=== PATIENT | male | born 1955 | race Caucasian/White ===

== ENCOUNTER → 2017-08-11 | Outpatient (CLI) | payer MEDICARE, OTHER ==
[~2017-08-11] MED LIST: ADVI200T PO; ASPI1TAB PO; BISO5TAB5 PO; COUM2.5T17 PO; LISI10TA4 PO; LISI20TA PO; MULT1TAB10 PO; NEXI40CA PO; OCUVCAP2 PO; PERC5TAB12 PO; SIMV10TA2 PO; TRAM50TA2 PO; WARF-23
[2017-08-11 11:55] LABS: INR 0.99; MEAN CORPUSCULAR HEMOGLOBIN 33.3 pg (27.0-33.0); MEAN CORPUSCULAR HGB CONC 34.4 g/dl (32.0-36.5); MEAN CORPUSCULAR VOLUME 96.8 fl (80.0-96.0); RED CELL DISTRIBUTION WIDTH 13.4 % (11.5-14.5); WHITE BLOOD COUNT 4.8 K/mm3 (4.0-10.0)
--- NOTE | 2017-08-11 12:59 | REP ---
Chest x-ray: Two views. History: Gastroesophageal reflux disease. Blood pressure. I cholesterol. . Comparison study: No comparison study . Findings: The lungs are well inflated and free of infiltrate. The pleural angles are sharp. The heart size is normal. Pulmonary vasculature is not increased. No significant bony abnormality is seen. There are degenerative changes in the thoracic spine. Impression: Negative chest x-ray. Signed by Anish Kemp MD 08/11/2017 12:50 P
[2017-08-11 13:09] LABS: ALBUMIN 3.9 GM/DL (3.2-5.2); ALBUMIN/GLOBULIN RATIO 1.26 (1.00-1.93); ALKALINE PHOSPHATASE 50 U/L (45-117); ALT/SGPT 51 U/L (12-78); ANION GAP 7 MEQ/L (8-16); AST/SGOT 59 U/L (15-37); BILIRUBIN,TOTAL 0.7 MG/DL (0.2-1.0); BLOOD UREA NITROGEN 26 MG/DL (7-18); CALCIUM LEVEL 9.4 MG/DL (8.8-10.2); CARBON DIOXIDE LEVEL 29 MEQ/L (21-32); CHLORIDE LEVEL 105 MEQ/L (98-107); CREATININE FOR GFR 0.98 MG/DL (0.70-1.30); GLOMERULAR FILTRATION RATE > 60.0 (>49); GLUCOSE, FASTING 101 MG/DL (80-110); POTASSIUM SERUM 4.3 MEQ/L (3.5-5.1); SODIUM LEVEL 141 MEQ/L (136-145)
--- NOTE | 2017-08-11 22:25 | ECGEPIP ---
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
== END ==
LOC: M ADMPAT 10:32
PROVIDERS: ATTEND Orthopaedic Surgery
DX: Z01.818 Encounter for other preprocedural examination (principal); M17.11 Unilateral primary osteoarthritis, right knee; Z79.899 Other long term (current) drug therapy

== ENCOUNTER 2017-08-24 13:00 | Inpatient (IN) | payer MEDICARE, OTHER ==
[2017-08-11 11:21] VITALS: BP 110/64
[~2017-08-24] VITALS: Ht 172.7 cm; Wt 97.5 kg
[~2017-08-24 13:00] MED LIST changes: -BISO5TAB5 PO; -COUM2.5T17 PO; -LISI10TA4 PO; -PERC5TAB12 PO; -TRAM50TA2 PO; -WARF-23
--- NOTE | 2017-08-25 04:48 | HPE ---
DATE OF SCHEDULED ADMISSION: 09/04/2017 HISTORY OF PRESENT ILLNESS: This is a pleasant male with continuing symptomatic right knee osteoarthritis. He has consented for a right total knee arthroplasty per Dr. Martin Chan. Medical optimization per Dr. Hutchison, which the patient states he was cleared, but we are still awaiting his note. X-rays are consistent with advanced osteoarthritis. ALLERGIES: None known to medications. MEDICINES: Include: - bisoprolol fumarate 5 mg every day - omeprazole 40 mg one by mouth every day - simvastatin - lisinopril - baby aspirin 81 mg one by mouth every day - He will take Coumadin the night before surgery 5 mg. - lisinopril/hydrochlorothiazide 10/12.5 mg one by mouth every day (Will have to ask the patient, as there appears to be a dosage that is 20/12.5 mg, to clarify that with the patient.) - simvastatin 20 mg one by mouth at bedtime MEDICAL PROBLEM LIST: Includes: 1. Symptomatic right knee osteoarthritis. 2. Hypertension. 3. Acid reflux. 4. Hypercholesteremia. PERTINENT SURGICAL HISTORY: 1. Bilateral hip replacements per Dr. Justice. 2. Right knee scope and double hernia in the past. SOCIAL HISTORY: Does not smoke or drink alcohol excessively. 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 He is and here with his . FAMILY HISTORY: Positive hypertension, diabetes, arthritis. REVIEW OF SYSTEMS: He denies chest pain, shortness of breath, dyspnea on exertion, fever, chills, malaise, upper respiratory or urinary tract symptoms. PHYSICAL EXAMINATION: Vitals: Weight 221. Height 5 feet 9 inches. Temperature 97.3, blood pressure (BP) 130/70, pulse 56, and respirations 16. He is a pleasant overweight white male in no acute distress. He is alert and oriented times three. Mood and affect are appropriate. Ambulating with favoring of his left lower extremity. Antalgia about his right knee. Right knee inspected. Benign, noninfectious looking. Not effused, ecchymotic, or erythematous, but positive medial joint line tenderness with crepitance about the knee through flexion/extension. Patellofemoral joint (PFJ) is congruent, static, and dynamic. He is stable about the collateral ligaments, patella, and quadriceps tendons. No popliteal fossa mass or pain. Right hip range of motion is not limited or irritable. Bowel: Soft, nontender times four. Chest: Rises symmetrically. Lungs: Clear to auscultation. Neck: Supple. Negative jugular venous distention (JVD) or bruits. Normocephalic. EKG shows sinus bradycardia read by Dr. Drew Gonzalez. Essentially normal EKG. Chest x-ray, 08/11/2017, read by Dr. Kemp. Negative chest x-ray. LABS: Were reviewed. No growth about nasal sinus and urine cultures. Ketones urine auto 1+. Red blood cell count 4.18, hemoglobin 13.9, hematocrit 40.5, mean corpuscular volume 96.8, mean corpuscular hemoglobin 33.3. BUN 26, anion gap 7, AST-SGOT 59. Otherwise, labs unremarkable. IMPRESSION: 1. Right knee symptomatic degenerative joint disease (DJD). 2. Patient consented for a right total knee arthroplasty per Dr. Martin Chan. 3. Medical optimization per Dr. Hutchison, but I am yet to see his note. 4. plastic press molder to operating room (OR) 2 grams IV Kefzol in OR. 5. Sequential compression device (SCD) and thromboembolism deterrents (TEDs) in OR. MTDD
[2017-09-04] MEDS ORDERED: LR 1,000 ML IV ONE (10:00)
[2017-09-04] MEDS ORDERED: ACETAMINOPHEN 500 MG TAB PO ONE (10:00)
[2017-09-04] MEDS ORDERED: WARF-23 (10:29)
[2017-09-04] MEDS ORDERED: BISO5TAB5 PO (10:29)
[2017-09-04] MEDS ORDERED: LISI10TA4 PO (10:32)
[2017-09-04] MEDS ORDERED: ceFAZolin 1GM INJ (J0690) As Ordered ONE (11:44)
[2017-09-04] MEDS ORDERED: MIDAZOLAM INJ 2 MG/2 ML VIAL (J2250) As Ordered ONE ×2 (11:44→13:39)
[2017-09-04] MEDS ORDERED: TRANEXAMIC ACID 100 MG/ML 10ML VIAL As Ordered ONE (11:44)
[2017-09-04] MEDS ORDERED: fentaNYL 100 MCG/2 ML INJECTION (J3010) As Ordered ONE ×2 (11:44→13:39)
[2017-09-04] MEDS ORDERED: EPINEPHrine INJ 1 MG/ML 1ML AMP As Ordered ONE (11:45)
[2017-09-04] MEDS ORDERED: BUPIVACAINE LIPOSOME/PF 1.3% 20 ML VIAL (13.3MG/ML)(EXPAREL) As Ordered ONE (11:45)
[2017-09-04] MEDS ORDERED: fentaNYL 100 MCG/2 ML INJECTION (J3010) IV ONE (12:45)
[2017-09-04] MEDS ORDERED: MIDAZOLAM INJ 2 MG/2 ML VIAL (J2250) IV ONE (12:45)
[2017-09-04] MEDS ORDERED: PROPOFOL 200 MG/20 ML VIAL As Ordered ONE ×2 (13:39→14:24)
[2017-09-04] MEDS ORDERED: ePHEDrine SULFATE 25 MG/5 ML(5MG/ML) SYRINGE As Ordered ONE (13:40)
[2017-09-04] MEDS ORDERED: ROPIvacaine 0.5% 30 ML INJECTION (J2795) ONE (13:40)
[2017-09-04] MEDS ORDERED: LIDOCAINE 2% INJ 100 MG/5 ML SDV (FOR ANES.) As Ordered ONE (13:40)
[2017-09-04] MEDS ORDERED: EPINEPHrine INJ 1 MG/ML 1ML AMP ONE (13:40)
[2017-09-04] MEDS ORDERED: dexameTHASONE 10 MG/1 ML VIAL PRES.FREE (J1100) ONE (13:40)
[2017-09-04] MEDS ORDERED: MORPHINE 1MG/ML IN 0.9% NACL 100ML IV BAG As Ordered ONE (15:08)
[2017-09-04] MEDS ORDERED: NALOXONE INJ 0.4 MG/1 ML VIAL (J2310) IV PRN (15:45)
[2017-09-04] MEDS ORDERED: MORPHINE 1MG/ML IN 0.9% NACL 100ML IV BAG IV PRN (15:45)
[2017-09-04] MEDS ORDERED: NALBUPHINE HCL 10 MG/ML AMP (J2300) IV PRN (15:45)
[2017-09-04] MEDS ORDERED: diphenhydrAMINE INJ 50MG/ML VIAL (J1200) IV PRN (15:45)
[2017-09-04] MEDS ORDERED: EPIDURAL/PCA KEYS XX PRN (15:45)
[2017-09-04] MEDS ORDERED: ONDANSETRON 4MG/2ML VIAL (J2405) IV PRN (15:45)
[2017-09-04] MEDS ORDERED: PERCOCET 5MG/325MG TAB PO PRN (15:45)
[2017-09-04] MEDS ORDERED: ACETAMINOPHEN TAB 650MG DOSE (2X325MG) PO PRN (15:45)
[2017-09-04] MEDS ORDERED: FLEET ENEMA PR PRN (15:45)
[2017-09-04] MEDS ORDERED: fentaNYL 100 MCG/2 ML INJECTION (J3010) IV PRN (15:45)
--- NOTE | 2017-09-04 16:03 | CR.PDOC ---
[facility] Consultation Consultation DATE OF CONSULTATION: 09/04/2017 PRIMARY CARE PHYSICIAN: Dr. Hutchison REFERRING PROVIDER: Dr. Ariella Rosas REASON FOR CONSULTATION/CHIEF COMPLAINT: Presented to [facility] for an elective right knee replacement. HISTORY OF PRESENT ILLNESS: Patient is a 62 year old male with a PMHx of HTN, DLP, GERD and Osteoarthritis who presented to [facility] for an elective right knee replacement. He received medical clearance with Dr. Hutchison 2 weeks prior; who performed blood work, EKG and CXR. Patient noted that he has been having right knee pain because of osteoarthritis. He has received corticosteroid injections in his knee that failed to improve the pain. He has tried oral medications as well, but failed to improve. He noted that he has been having difficulty with ambulation. Currently he is post-surgery and he denies any nausea, vomiting, abdominal pain , constipation, diarrhea or dysuria. He also denies chest pain, shortness of breath or palpitations. He notes a non-productive cough that has been present prior to surgery. No fevers have been reported. ALLERGIES: Please see below. HOME MEDICATIONS: Please see below. 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 ASSESSMENT/PLAN: Right knee pain - likely 2/2 osteoarthritis - s/p total right knee arthroplasty (POD#0) - Presented after he failed medical management and had difficulty with walking - Surgery to manage pain control and anticoagulation for DVT prophyalxis HTN - blood pressure well controlled currently - c/w Bisoprolol - Will hold Lisinopril and HCTZ pending lab work DLP - c/w simvastatin GERD - c/w PPI DVT prophylaxis - As per surgical team Vital Signs/I&O Vital Signs Date Time Temp Pulse Resp B/P (MAP) Pulse Ox O2 Delivery O2 Flow Rate FiO2 09/04/17 15:59 97.2 95 18 145/81 (102) 95 Room Air 09/04/17 15:25 2 I&O- Last 24 Hours up to 6 AM 09/05/17 05:59 Intake Total 1900 ml Output Total 1050 ml Balance 850 ml Allergies Coded Allergies: No Known Allergies (Unverified , 08/11/17) Home Medications Scheduled (Lisinopril/Hydrochlorothi 20-12.5 mg) 1 Tab Tab, 1 TAB PO DAILY, (Reported) Aspirin (Aspirin 81) 81 Mg Tab, 81 MG PO DAILY, #30 (Reported) Bisoprolol Fumarate (Bisoprolol Fumarate) 5 Mg Tab, 5 MG PO DAILY, (Reported) Esomeprazole Magnesium Trihydr (Nexium) 40 Mg Cap, 40 MG PO DAILY, (Reported) Lisinopril (Lisinopril) 10 Mg Tab, 10 MG PO DAILY, (Reported) Multivitamins (Multivitamin Adults) 1 Tab Tab, 1 TAB PO DAILY, (Reported) Multivitamins (Ocuvite Adult 50+) 1 Cap Cap, 1 CAP PO DAILY, (Reported) Simvastatin (Simvastatin) 10 Mg Tab, 10 MG PO DAILY, (Reported) Scheduled PRN Ibuprofen (Advil) 200 Mg Tab, 400 MG PO Q4HP PRN for PAIN, (Reported) Miscellaneous Medications Warfarin Sod (Warfarin Sodium) 5 Mg Tab, (Reported) KELY LINDQUIST MD Sep 04, 2017 16:03
[2017-09-04] MEDS ORDERED: WARFARIN SOD 5 MG TAB PO ONE (17:00)
[2017-09-04] MEDS: LR 1,000 ML IV SCH (18:01)
[2017-09-04] MEDS: BISOPROLOL FUMARATE 5 MG TAB PO SCH (18:08)
--- NOTE | 2017-09-04 20:51 | RO ---
DATE OF PROCEDURE: 09/04/2017 PREPROCEDURE DIAGNOSIS: Right knee degenerative arthritis. POSTPROCEDURE DIAGNOSIS: Right knee degenerative arthritis. OPERATIVE PROCEDURE: Right total knee arthroplasty using a size 4 cruciate retaining femoral component, size 4 tibial tray, with a 10 mm rotating platform polyethylene insert and a 35 mm polyethylene button. All components were cemented. The prosthesis was made by [employer]. It was a PFC knee. SURGEON: Fatou Chan MD LIVESTOCK DEALER: Ms. Malathi Caraballo ANESTHESIA: Spinal with right femoral nerve block. COMPLICATIONS: None. SPECIMENS: Joint surface. ESTIMATED BLOOD LOSS: Less than 20 mL. TOURNIQUET TIME: 85 minutes. DESCRIPTION OF PROCEDURE: Antibiotics were given intravenously preoperatively and a successful right femoral nerve block and then spinal anesthetic was induced. Then a spinal anesthetic was established. Then, a tourniquet was placed on the right upper thigh and not inflated. Right lower extremity was carefully prepped and draped in the usual sterile fashion, then the leg was elevated, then after the appropriate time out, the tourniquet was inflated. A longitudinal incision was made for a medial parapatellar approach to the knee. Bovie cautery was used to coagulate crossing vessels. Subperiosteal dissection over the proximal, medial and lateral tibial plateaus were performed and posterior and medial release performed. Then we everted the patella and flexed the knee. Drill was placed down the center of the femoral canal. It is noteworthy that he actually had a significant amount of obligate internal rotation of the femur and he did not have very good external rotation or internal rotation of the femur. It is noteworthy that he did have a total hip replacement above. Nonetheless, I used a distal femoral cutting jig was supplied and set at 5 degrees valgus cut at 10 mm resection level for a right knee. Block was pinned into position. Distal femoral cut performed. An AP sizing jig measured for a size #4. The 3 degrees external rotation block was placed and the drill holes placed, then the four-in-one block applied. It appeared as if we were appropriate in terms of white side line and the epicondylar axis. Thus this position with the 3 degrees external rotation was accepted. We were clearly taking more medial off than lateral which seemed appropriate. Then we performed anterior, posterior and chamfer cuts, taking great care to protect the surrounding soft tissues. We then exposed the proximal tibia, used extramedullary sarah to estimate being parallel the entry level mechanical engineer axis of the tibia. Referenced off the medial tibial condyle, took 4 mm from that position. Block was pinned into position. Secondary check with extramedullary sarah confirmed that we appeared to be parallel to the mechanical axis. Proximal tibial osteotomy was then performed. Laminar paraeducator was then placed medially and we performed a completion lateral meniscectomy and debridement of posterior and lateral osteophytes. Then we placed the laminar paraeducator laterally and performed a completion medial meniscectomy with debridement of the posterior and medial osteophytes. Spacer blocks were then trialed. He was quite tight both in flexion and extension. However, I could get the flexion block in in extension and he had good alignment. I used the two rods to check our overall alignment from the center of the femoral head to the ankle. However, I was able to flex the knee. It is noteworthy that he had significant amount of internal rotation of the distal femur consistent with what we had seen earlier. Thus, I did look closely at this and that possibly this could cause trouble with patellofemoral maltracking. After thinking this through and reapplying the four-in-one block and the slight amount of external rotation, repinning it and redoing our cuts did not change a whole lot and thus at this point I put the femur in place, brought the knee out into extension and then we prepared the patella with the knee in extension. The patella osteotomy was then performed and the 35 button was chosen. The lug hole was drilled and the trial component was placed. As I flexed and extended the knee, however, the patellofemoral tracking was fine. So after contemplating whether or not I needed to do anything with femur, internal rotation deformity, I think it likely would be still a stable knee. Thus, rather than doing anything radical with the cuts, I went ahead and completed the preparation. I did take an additional 2 mm, because there is both some tightness in flexion and in extension. By reapplying the tibial cutting block and performing the proximal tibial osteotomy. I then placed the trial tibial tray, applied the reamer and broach and then the trial femoral component and again the patellofemoral tracking was anatomic. He had actually excellent stability to varus-valgus stress testing both in extension actually and in flexion, although he did have internal rotation as I flexed the knee. So, I felt this was the most successful I could do. The lug holes were drilled. All the trial components were removed and I placed the Exparel in the knee and the posterior capsule, the medial and lateral periosteum of the femur as well as the medial and lateral periosteum of the tibia and the arthrotomy edges of the deep capsule. I then prepared the bony surfaces for cementing with copious amount of pulsatile lavage irrigant solution as my reading assistant Malathi Ilya prepared the cement. She was also critical to the success of this operation in helping me by manipulating the knee, applying appropriate soft tissue retraction so I could perform the operation smoothly and efficiently amongst many other tasks. Once all the bony surfaces were well dried and cleansed I cemented the tibial tray, removed excess cement and placed the polyethylene, then cemented the femoral component, removed excess cement, brought the knee into extension, cemented the patellar button, removed excess cement and held that position in extension until the cement hardened and while we were waiting applied a copious amount of pulsatile lavage irrigant solution throughout the knee. Then the tranexamic acid was applied. Began closing the arthrotomy with two apex #1 PDS sutures and one medial peripatellar area, then a running #1 Stratafix double arm was used to close the capsule as we let the tourniquet down. We irrigated between layers, closed the deep subdermal tissues with interrupted #2-0 PDS sutures. Skin was closed with chun, covered by Adaptic dry sterile bulky dressing. He was then transferred to the recovery room in stable condition. There were no intraoperative complications.
[2017-09-04 22:00] VITALS: BP 134/85
[2017-09-05 02:00] VITALS: BP 138/80
[2017-09-05] MEDS: LR 1,000 ML IV SCH (04:15)
[2017-09-05 06:00] VITALS: BP 159/79
[2017-09-05 06:38] LABS: BASO % 0.3 % (0.0-1.0); EOS % 0.2 % (0.0-3.0); IMMATURE GRANULOCYTE % 0.4 % (0-0); LYMPH # 1.1 10^3/uL (1.5-4.5); LYMPH % 8.7 % (24.0-44.0); MEAN CORPUSCULAR HEMOGLOBIN 32.2 pg (27.0-33.0); MEAN CORPUSCULAR HGB CONC 33.6 g/dl (32.0-36.5); MEAN CORPUSCULAR VOLUME 95.9 fl (80.0-96.0); MONO # 1.4 10^3/uL (0.0-0.8); MONO % 10.9 % (0.0-5.0); NEUTROPHILS # 9.9 10^3/uL (1.8-7.7); NEUTROPHILS % 79.5 % (36.0-66.0); PLATELET COUNT, AUTOMATED 175 10^3/uL (150-450); RED CELL DISTRIBUTION WIDTH 14.4 % (11.5-14.5); WHITE BLOOD COUNT 12.5 10^3/uL (4.0-10.0)
[2017-09-05] MEDS ORDERED: PERCOCET 5MG/325MG TAB PO PRN ×2 (06:45)
[2017-09-05 06:50] LABS: INR 1.02
[2017-09-05 06:52] LABS: ALBUMIN/GLOBULIN RATIO 0.97 (1.00-1.93); ALKALINE PHOSPHATASE 41 U/L (45-117); ALT/SGPT 23 U/L (12-78); ANION GAP 6 MEQ/L (8-16); AST/SGOT 13 U/L (15-37); BILIRUBIN,TOTAL 0.3 MG/DL (0.2-1.0); BLOOD UREA NITROGEN 13 MG/DL (7-18); CALCIUM LEVEL 8.6 MG/DL (8.8-10.2); CARBON DIOXIDE LEVEL 30 MEQ/L (21-32); CHLORIDE LEVEL 105 MEQ/L (98-107); CREATININE FOR GFR 0.83 MG/DL (0.70-1.30); GLOMERULAR FILTRATION RATE > 60.0 (>49); GLUCOSE, FASTING 128 MG/DL (80-110); MAGNESIUM LEVEL 2.1 MG/DL (1.8-2.4); POTASSIUM SERUM 4.1 MEQ/L (3.5-5.1); SODIUM LEVEL 141 MEQ/L (136-145); TOTAL PROTEIN 6.1 GM/DL (6.4-8.2)
[2017-09-05] MEDS ORDERED: traMADol 50 MG TAB PO PRN (07:30)
[2017-09-05] MEDS: MIRALAX *UNIT DOSE* 17GM PACKET PO SCH (08:12)
[2017-09-05] MEDS: MOM 30ML SUSPENSION UDC PO SCH (08:12)
[2017-09-05] MEDS: MULTIVITAMINS/MINERALS THERAP 1 TAB PO SCH (08:13)
[2017-09-05] MEDS: OCUVITE 1 TAB PO SCH (08:13)
[2017-09-05] MEDS: PANTOPRAZOLE 40MG TAB (PROTONIX) PO SCH (08:13)
[2017-09-05] MEDS: SENOKOT S TAB PO SCH ×2 (08:13→21:00)
[2017-09-05] MEDS: ACETAMINOPHEN TAB 650MG DOSE (2X325MG) PO SCH ×4 (08:13→21:00)
[2017-09-05] MEDS ORDERED: MORPHINE 15 MG SA TAB PO ONE (08:15)
[2017-09-05] MEDS ORDERED: MORPHINE 15 MG SA TAB PO SCH (09:00)
[2017-09-05 10:00] VITALS: BP 141/79
--- NOTE | 2017-09-05 11:46 | REP ---
Right knee series: Two views. History: Check placement. Findings: The patient is status post right knee arthroplasty. The patellar, femoral, and tibial components are well aligned with respect to each other and their [place] bones. Anterior skin chun and periarticular soft tissue emphysema are seen expected postoperatively. Signed by Anish Kemp MD 09/05/2017 02:17 P
[2017-09-05 14:00] VITALS: BP 161/84
--- NOTE | 2017-09-05 15:02 | IPNPDOC ---
Date Seen The patient was seen on 09/05/17. Progress Note Hospitalist Progress Note Subjective: Patient states that he is nauseated and having trouble keeping food down Objective: Physical Exam: Vitals: Vital Sign - Last 24 Hours 09/04/17 09/04/17 09/04/17 09/04/17 15:25 15:41 15:53 15:59 Temp 97.0 97.2 Pulse 62 54 57 95 Resp 18 18 18 18 B/P (MAP) 144/88 (106) 140/80 (100) 144/80 (101) 145/81 (102) Pulse Ox 99 95 95 95 O2 Delivery Nasal Cannula Room Air Room Air Room Air O2 Flow Rate 2 09/04/17 09/04/17 09/04/17 09/04/17 16:15 18:08 20:00 21:00 Pulse 95 B/P (MAP) 145/81 Pulse Ox 94 O2 Delivery Room Air Room Air Room Air 09/04/17 09/04/17 09/05/17 09/05/17 21:00 22:00 02:00 06:00 Temp 98.0 100.6 99.2 Pulse 60 70 67 Resp 18 18 18 B/P (MAP) 134/85 (101) 138/80 (99) 159/79 (105) Pulse Ox 95 96 96 O2 Delivery Room Air Room Air Room Air Room Air 09/05/17 09/05/17 09/05/17 08:00 08:13 10:00 Temp 98.1 Pulse 59 Resp 16 17 B/P (MAP) 141/79 (99) Pulse Ox 93 O2 Delivery Room Air Room Air General: Awake, alert, no acute distress HEENT: Normocephalic, atraumatic, extraocular movements intact CV: Regular Rate and rhythm Lungs: Clear to auscultation bilaterally Abd: Soft, nontender, nondistended Extremities: Pedal pulses intact bilaterally Neuro: Alert and oriented 3, normal speech Psych: Normal mood and affect Labs and Imaging: Laboratory Tests 09/05/17 06:13 Red Blood Count 3.91 L, Mean Corpuscular Volume 95.9, Mean Corpuscular Hemoglobin 32.2, Mean Corpuscular Hemoglobin Concent 33.6, Red Cell Distribution Width 14.4, Neutrophils (%) (Auto) 79.5 H, Lymphocytes (%) (Auto) 8.7 L, Monocytes (%) (Auto) 10.9 H, Eosinophils (%) (Auto) 0.2, Basophils (%) ( Auto) 0.3, Neutrophils # (Auto) 9.9 H, Lymphocytes # (Auto) 1.1 L, Monocytes # ( Auto) 1.4 H, Eosinophils # (Auto) 0.0, Basophils # (Auto) 0.0, Calcium Level 8.6 L, Aspartate Amino Transf (AST/SGOT) 13 L, Alanine Aminotransferase (ALT/ SGPT) 23, Alkaline Phosphatase 41 L, Total Bilirubin 0.3, Total Protein 6.1 L, Albumin 3.0 L Assessment and Plan: 62-year-old male with hypertension, hyperlipidemia, GERD, osteoarthritis who underwent elective right knee replacement with Dr. Veronica on 09/04/2017. We are consulted for management of his chronic medical conditions. 1. Hypertension: Continue home beta margarita. Currently holding home NURIA inhibitor, as well as NURIA inhibitor/HCTZ combination pill. The patient states that last year he has lost 50 pounds, and they have been cutting back his blood pressure medication. We will continue to monitor his pressure and add his medications back as needed. 2. Hyperlipidemia: Continue home statin. 3. GERD: Continue home PPI. 4. Knee replacement: Management as per orthopedics, including pain management and DVT prophylaxis. DVT prophylaxis: As per his primary team Dispo: as per his primary team VS, I&O, 24H, Fishbone Vital Signs/I&O Vital Signs Date Time Temp Pulse Resp B/P (MAP) Pulse Ox O2 Delivery O2 Flow Rate FiO2 09/05/17 10:00 98.1 59 17 141/79 (99) 93 Room Air 09/04/17 15:25 2 I&O- Last 24 Hours up to 6 AM 09/06/17 06:00 Intake Total 560 ml Output Total 350 ml Balance 210 ml Laboratory Data 24H LABS Laboratory Tests 2 09/05/17 06:13: Immature Granulocyte % (Auto) 0.4H, White Blood Count 12.5H, Red Blood Count 3.91L, Hemoglobin 12.6L, Hematocrit 37.5L, Mean Corpuscular Volume 95.9, Mean Corpuscular Hemoglobin 32.2, Mean Corpuscular Hemoglobin Concent 33.6, Red Cell Distribution Width 14.4, Platelet Count 175, Neutrophils (%) (Auto) 79.5H, Lymphocytes (%) (Auto) 8.7L, Monocytes (%) (Auto) 10.9H, Eosinophils (%) (Auto) 0.2, Basophils (%) (Auto) 0.3, Neutrophils # (Auto) 9.9H, Lymphocytes # (Auto) 1.1L, Monocytes # (Auto) 1.4H, Eosinophils # (Auto) 0.0, Basophils # (Auto) 0.0 , Immature Granulocyte # (Auto) 0.1H, Nucleated Red Blood Cells % (auto) 0.0, Prothrombin Time 13.5, Prothromb Time International Ratio 1.02, Anion Gap 6L, Glomerular Filtration Rate > 60.0, Blood Urea Nitrogen 13, Creatinine 0.83, Sodium Level 141, Potassium Level 4.1, Chloride Level 105, Carbon Dioxide Level 30, Calcium Level 8.6L, Aspartate Amino Transf (AST/SGOT) 13L, Alanine Aminotransferase (ALT/SGPT) 23, Alkaline Phosphatase 41L, Total Bilirubin 0.3, Total Protein 6.1L, Albumin 3.0L, Magnesium Level 2.1, Albumin/Globulin Ratio 0.97L CBC/BMP Laboratory Tests 09/05/17 06:13 Red Blood Count 3.91 L, Mean Corpuscular Volume 95.9, Mean Corpuscular Hemoglobin 32.2, Mean Corpuscular Hemoglobin Concent 33.6, Red Cell Distribution Width 14.4, Neutrophils (%) (Auto) 79.5 H, Lymphocytes (%) (Auto) 8.7 L, Monocytes (%) (Auto) 10.9 H, Eosinophils (%) (Auto) 0.2, Basophils (%) ( Auto) 0.3, Neutrophils # (Auto) 9.9 H, Lymphocytes # (Auto) 1.1 L, Monocytes # ( Auto) 1.4 H, Eosinophils # (Auto) 0.0, Basophils # (Auto) 0.0, Calcium Level 8.6 L, Aspartate Amino Transf (AST/SGOT) 13 L, Alanine Aminotransferase (ALT/ SGPT) 23, Alkaline Phosphatase 41 L, Total Bilirubin 0.3, Total Protein 6.1 L, Albumin 3.0 L COLLIN HOWARD Sep 05, 2017 15:02
[2017-09-05] MEDS: ONDANSETRON 4 MG TAB (S0181) PO PRN (15:53)
[2017-09-05] MEDS: traMADol 50 MG TAB PO PRN ×2 (15:54→22:15)
[2017-09-05] MEDS ORDERED: WARFARIN SOD 5 MG TAB PO ONE (17:00)
[2017-09-05] MEDS: BISOPROLOL FUMARATE 5 MG TAB PO SCH (17:20)
[2017-09-05 18:00] VITALS: BP 162/83
[2017-09-05] MEDS ORDERED: MORPHINE 15 MG SA TAB PO PRN (18:00)
[2017-09-05] MEDS ORDERED: SIMVASTATIN 10 MG TAB PO SCH (21:00)
[2017-09-05 22:00] VITALS: BP 164/82
[2017-09-06] MEDS: ACETAMINOPHEN TAB 650MG DOSE (2X325MG) PO SCH ×4 (01:52→13:00)
[2017-09-06 06:00] VITALS: BP 136/71
[2017-09-06 07:11] LABS: BASO # 0.1 10^3/uL (0.0-0.2); BASO % 0.4 % (0.0-1.0); EOS # 0.2 10^3/uL (0.0-0.50); EOS % 1.5 % (0.0-3.0); IMMATURE GRANULOCYTE % 0.4 % (0-0); LYMPH # 1.3 10^3/uL (1.5-4.5); LYMPH % 11.4 % (24.0-44.0); MEAN CORPUSCULAR HEMOGLOBIN 31.8 pg (27.0-33.0); MEAN CORPUSCULAR HGB CONC 32.7 g/dl (32.0-36.5); MEAN CORPUSCULAR VOLUME 97.4 fl (80.0-96.0); MONO # 1.5 10^3/uL (0.0-0.8); MONO % 13.4 % (0.0-5.0); NEUTROPHILS # 8.2 10^3/uL (1.8-7.7); NEUTROPHILS % 72.9 % (36.0-66.0); PLATELET COUNT, AUTOMATED 177 10^3/uL (150-450); RED CELL DISTRIBUTION WIDTH 14.7 % (11.5-14.5); WHITE BLOOD COUNT 11.2 10^3/uL (4.0-10.0)
[2017-09-06 07:20] LABS: INR 1.04
[2017-09-06 07:28] LABS: ALBUMIN/GLOBULIN RATIO 0.86 (1.00-1.93); ALKALINE PHOSPHATASE 44 U/L (45-117); ALT/SGPT 21 U/L (12-78); ANION GAP 6 MEQ/L (8-16); AST/SGOT 12 U/L (15-37); BILIRUBIN,TOTAL 0.5 MG/DL (0.2-1.0); BLOOD UREA NITROGEN 11 MG/DL (7-18); CALCIUM LEVEL 8.3 MG/DL (8.8-10.2); CARBON DIOXIDE LEVEL 28 MEQ/L (21-32); CHLORIDE LEVEL 103 MEQ/L (98-107); CREATININE FOR GFR 0.75 MG/DL (0.70-1.30); GLOMERULAR FILTRATION RATE > 60.0 (>49); GLUCOSE, FASTING 114 MG/DL (80-110); MAGNESIUM LEVEL 2.3 MG/DL (1.8-2.4); POTASSIUM SERUM 4.1 MEQ/L (3.5-5.1); SODIUM LEVEL 137 MEQ/L (136-145); TOTAL PROTEIN 6.5 GM/DL (6.4-8.2)
[2017-09-06] MEDS ORDERED: COUM2.5T17 PO (07:38)
[2017-09-06] MEDS ORDERED: PERC5TAB12 PO (07:38)
[2017-09-06] MEDS ORDERED: ENOXAPARIN 40 MG/0.4 ML SYRINGE (J1650) SC ONE (07:45)
[2017-09-06] MEDS ORDERED: TRAM50TA2 PO (07:56)
[2017-09-06] MEDS: MOM 30ML SUSPENSION UDC PO SCH (08:12)
[2017-09-06] MEDS: OCUVITE 1 TAB PO SCH (08:12)
[2017-09-06] MEDS: PANTOPRAZOLE 40MG TAB (PROTONIX) PO SCH (08:12)
[2017-09-06] MEDS: MIRALAX *UNIT DOSE* 17GM PACKET PO SCH (08:12)
[2017-09-06] MEDS: SENOKOT S TAB PO SCH (08:12)
[2017-09-06] MEDS: MULTIVITAMINS/MINERALS THERAP 1 TAB PO SCH (08:12)
[2017-09-06] MEDS: ONDANSETRON 4 MG TAB (S0181) PO PRN (08:12)
[2017-09-06 08:14] VITALS: BP 138/74
[2017-09-06] MEDS ORDERED: LISINOPRIL 20 MG TAB PO SCH (09:00)
[2017-09-06] MEDS ORDERED: hydroCHLOROthiazide 12.5 MG CAPSULE PO SCH (09:00)
[2017-09-06] MEDS ORDERED: LISINOPRIL 10 MG TAB PO SCH (09:00)
--- NOTE | 2017-09-06 14:07 | IPNPDOC ---
Date Seen The patient was seen on 09/06/17. Progress Note Hospitalist Progress Note Subjective: Patient states that his nausea has resolved and he is eating well; denies dysuria, SOB, or cough Objective: Physical Exam: Vitals: Vital Sign - Last 24 Hours 09/05/17 09/05/17 09/05/17 09/05/17 15:54 17:20 18:00 20:00 Temp 100.7 Pulse 70 67 Resp 16 17 B/P (MAP) 140/66 162/83 (109) Pulse Ox 93 O2 Delivery Room Air Room Air 09/05/17 09/05/17 09/05/17 09/06/17 22:00 22:15 22:45 06:00 Temp 100.4 97.1 Pulse 64 57 Resp 18 18 18 18 B/P (MAP) 164/82 (109) 136/71 (92) Pulse Ox 94 96 O2 Delivery Room Air Room Air Room Air Room Air 09/06/17 09/06/17 09/06/17 07:59 08:00 08:14 B/P (MAP) 138/74 Pulse Ox 96 O2 Delivery Room Air Room Air General: Awake, alert, no acute distress HEENT: Normocephalic, atraumatic, extraocular movements intact CV: Regular Rate and rhythm Lungs: Clear to auscultation bilaterally Abd: Soft, nontender, nondistended Extremities: Pedal pulses intact bilaterally Neuro: Alert and oriented 3, normal speech Psych: Normal mood and affect Labs and Imaging: Laboratory Tests 09/06/17 05:21 Red Blood Count 3.80 L, Mean Corpuscular Volume 97.4 H, Mean Corpuscular Hemoglobin 31.8, Mean Corpuscular Hemoglobin Concent 32.7, Red Cell Distribution Width 14.7 H, Neutrophils (%) (Auto) 72.9 H, Lymphocytes (%) (Auto ) 11.4 L, Monocytes (%) (Auto) 13.4 H, Eosinophils (%) (Auto) 1.5, Basophils (% ) (Auto) 0.4, Neutrophils # (Auto) 8.2 H, Lymphocytes # (Auto) 1.3 L, Monocytes # (Auto) 1.5 H, Eosinophils # (Auto) 0.2, Basophils # (Auto) 0.1, Calcium Level 8.3 L, Aspartate Amino Transf (AST/SGOT) 12 L, Alanine Aminotransferase (ALT/ SGPT) 21, Alkaline Phosphatase 44 L, Total Bilirubin 0.5 #, Total Protein 6.5, Albumin 3.0 L Assessment and Plan: 62-year-old male with hypertension, hyperlipidemia, GERD, osteoarthritis who underwent elective right knee replacement with Dr. Veronica on 09/04/2017. We are consulted for management of his chronic medical conditions. 1. Hypertension: Continue home beta margarita. Upon further clarification, patient states that he used to take both NURIA inhibitor, as well as NURIA inhibitor /HCTZ combination pill, but with his recent weight loss, he had stopped taking the plain ACEI in the last several weeks and was only on the beta margarita and combination ACEI/HCTZ pill. He may resume both of these (beta margarita and combination pill) at discharge and follow up with his PCP. 2. Hyperlipidemia: Continue home statin. 3. GERD: Continue home PPI. 4. Knee replacement: Management as per orthopedics, including pain management and DVT prophylaxis. DVT prophylaxis: As per his primary team Dispo: as per his primary team VS, I&O, [facility] Vital Signs/I&O Vital Signs Date Time Temp Pulse Resp B/P (MAP) Pulse Ox O2 Delivery O2 Flow Rate FiO2 09/06/17 08:14 138/74 09/06/17 08:00 Room Air 09/06/17 07:59 96 09/06/17 06:00 97.1 57 18 09/04/17 15:25 2 I&O- Last 24 Hours up to 6 AM 09/07/17 06:00 Intake Total 340 ml Output Total 300 ml Balance 40 ml Laboratory Data 24H LABS Laboratory Tests 2 09/06/17 05:21: Immature Granulocyte % (Auto) 0.4H, White Blood Count 11.2H, Red Blood Count 3.80L, Hemoglobin 12.1L, Hematocrit 37.0L, Mean Corpuscular Volume 97.4H, Mean Corpuscular Hemoglobin 31.8, Mean Corpuscular Hemoglobin Concent 32.7, Red Cell Distribution Width 14.7H, Platelet Count 177, Neutrophils (%) (Auto) 72.9H, Lymphocytes (%) (Auto) 11.4L, Monocytes (%) (Auto) 13.4H, Eosinophils (%) (Auto ) 1.5, Basophils (%) (Auto) 0.4, Neutrophils # (Auto) 8.2H, Lymphocytes # (Auto ) 1.3L, Monocytes # (Auto) 1.5H, Eosinophils # (Auto) 0.2, Basophils # (Auto) 0.1, Immature Granulocyte # (Auto) 0.1H, Nucleated Red Blood Cells % (auto) 0.0 , Prothrombin Time 13.7, Prothromb Time International Ratio 1.04, Anion Gap 6L, Glomerular Filtration Rate > 60.0, Blood Urea Nitrogen 11, Creatinine 0.75, Sodium Level 137, Potassium Level 4.1, Chloride Level 103, Carbon Dioxide Level 28, Calcium Level 8.3L, Aspartate Amino Transf (AST/SGOT) 12L, Alanine Aminotransferase (ALT/SGPT) 21, Alkaline Phosphatase 44L, Total Bilirubin 0.5#, Total Protein 6.5, Albumin 3.0L, Magnesium Level 2.3, Albumin/Globulin Ratio 0.86L CBC/BMP Laboratory Tests 09/06/17 05:21 Red Blood Count 3.80 L, Mean Corpuscular Volume 97.4 H, Mean Corpuscular Hemoglobin 31.8, Mean Corpuscular Hemoglobin Concent 32.7, Red Cell Distribution Width 14.7 H, Neutrophils (%) (Auto) 72.9 H, Lymphocytes (%) (Auto ) 11.4 L, Monocytes (%) (Auto) 13.4 H, Eosinophils (%) (Auto) 1.5, Basophils (% ) (Auto) 0.4, Neutrophils # (Auto) 8.2 H, Lymphocytes # (Auto) 1.3 L, Monocytes # (Auto) 1.5 H, Eosinophils # (Auto) 0.2, Basophils # (Auto) 0.1, Calcium Level 8.3 L, Aspartate Amino Transf (AST/SGOT) 12 L, Alanine Aminotransferase (ALT/ SGPT) 21, Alkaline Phosphatase 44 L, Total Bilirubin 0.5 #, Total Protein 6.5, Albumin 3.0 L COLLIN HOWARD Sep 06, 2017 14:07
--- NOTE | 2017-09-09 12:55 | DSES ---
DATE OF ADMISSION: 09/04/2017 DATE OF DISCHARGE: 09/06/2017 DATE OF SURGERY: 09/04/2017 ATTENDING PHYSICIAN: Fatou Chan MD ADMITTING DIAGNOSIS: Right knee degenerative arthritis. DISCHARGE DIAGNOSIS: Right knee degenerative arthritis, status post right total knee arthroplasty. OTHER DIAGNOSES: 1. Hypertension. 2. Gastroesophageal reflux. 3. Hyperlipidemia. HISTORY: The patient is a 62-year-old male with progressively worsening right knee pain and stiffness. He failed to improve with conservative measures, so he consented for an elective right total knee arthroplasty with Dr. Chan. OPERATION PERFORMED: Right total knee arthroplasty. HOSPITAL COURSE: The patient underwent a right total knee arthroplasty under spinal anesthesia, which was uneventful. His hospital course was without complication, and he was up with physical therapy per their protocol, weightbearing as tolerated on the right lower extremity. He was discharged on oral pain medications with instructions to resume his preoperative medications and diet. The patient will take his Coumadin and use his thromboembolic deterrent stockings for 30 days postoperatively to prevent deep venous thrombosis. He will followup in our office in approximately 12-14 days for a wound check and staple removal. He is encouraged to contact our office sooner if there is any increased pain, drainage, redness, numbness, or tingling in the extremity, fevers greater than 101 degrees, or any other concerns. Please see medical record for additional details. [facility]
== END 2017-09-06 13:30 | disposition home health service (06) | DRG 470 ==
LOC: M OR 09-04 09:43 → M MS5PR 09-04 16:14
PROVIDERS: ADMIT Orthopaedic Surgery; ATTEND Orthopaedic Surgery
PROC: 0SRC0J9 Replacement of Right Knee Joint with Synthetic Substitute, Cemented, Open Approach (ICD-10-PCS; principal; 2017-09-04 12:30)
DX: M17.11 Unilateral primary osteoarthritis, right knee (principal); I10 Essential (primary) hypertension; K21.9 Gastro-esophageal reflux disease without esophagitis; E78.5 Hyperlipidemia, unspecified; E78.00 Pure hypercholesterolemia, unspecified; Z96.643 Presence of artificial hip joint, bilateral; Z79.82 Long term (current) use of aspirin; Z79.899 Other long term (current) drug therapy

== ENCOUNTER → 2017-09-08 | Outpatient (REF) | payer MEDICARE, OTHER ==
[~2017-09-08] MED LIST changes: +BISO5TAB5 PO; +COUM2.5T17 PO; +LISI10TA4 PO; +PERC5TAB12 PO; +TRAM50TA2 PO; +WARF-23
[2017-09-08 15:15] LABS: INR 1.38
== END ==
LOC: M SHH 14:44
PROVIDERS: ATTEND Nurse Practitioner Family
DX: Z79.01 Long term (current) use of anticoagulants (principal)

== ENCOUNTER → 2017-09-10 | Outpatient (REF) | payer MEDICARE, OTHER ==
[2017-09-10 15:43] LABS: INR 1.77
== END ==
LOC: M LAB REF 15:08
PROVIDERS: ATTEND Nurse Practitioner Family
DX: Z79.01 Long term (current) use of anticoagulants (principal)

== ENCOUNTER → 2017-10-01 | Outpatient (REF) | payer MEDICARE, OTHER ==
[2017-10-01 13:40] LABS: INR 1.63
== END ==
LOC: M LABDRAW1 11:51
PROVIDERS: ATTEND Nurse Practitioner Family
DX: Z79.01 Long term (current) use of anticoagulants (principal)

== ENCOUNTER 2018-07-16 10:18 | Day surgery (SDC) | payer MEDICARE, OTHER ==
[2018-07-16] MEDS: NS 1,000 ML IV (07:00)
[~2018-07-16 10:18] MED LIST changes: -ADVI200T PO; -ASPI1TAB PO; -BISO5TAB5 PO; -COUM2.5T17 PO; +LIDOCAINE 2% INJ 100 MG/5 ML SDV (FOR ANES.) As Ordered; -LISI10TA4 PO; -LISI20TA PO; -MULT1TAB10 PO; -NEXI40CA PO; +NS 1,000 ML IV; -OCUVCAP2 PO; -PERC5TAB12 PO; +PROPOFOL 200 MG/20 ML VIAL As Ordered; -SIMV10TA2 PO; -TRAM50TA2 PO; -WARF-23
== END 2018-07-16 12:40 | disposition home or self-care (01) ==
LOC: M OPP 10:18
DX: R12 Heartburn (principal); K22.70 Barrett's esophagus without dysplasia; K22.8 Other specified diseases of esophagus; K44.9 Diaphragmatic hernia without obstruction or gangrene; I10 Essential (primary) hypertension; E78.5 Hyperlipidemia, unspecified; K21.9 Gastro-esophageal reflux disease without esophagitis; D64.9 Anemia, unspecified; M19.90 Unspecified osteoarthritis, unspecified site; H25.9 Unspecified age-related cataract; K64.8 Other hemorrhoids; K40.90 Unilateral inguinal hernia, without obstruction or gangrene, not specified as recurrent; K57.30 Diverticulosis of large intestine without perforation or abscess without bleeding; Z96.643 Presence of artificial hip joint, bilateral; Z96.651 Presence of right artificial knee joint; Z79.82 Long term (current) use of aspirin; Z79.899 Other long term (current) drug therapy
CPT/HCPCS: 43239

== ENCOUNTER → 2019-10-06 | Outpatient (REF) ==
[~2019-10-06] MED LIST changes: +ADVI200T PO; +ASPI81TA26 PO; +BISO5TAB9 PO; +COUM2.5T17 PO; +KRIL300C2 PO; -LIDOCAINE 2% INJ 100 MG/5 ML SDV (FOR ANES.) As Ordered; +LISI10TA4 PO; +LISI20TA19 PO; +MULT1TAB10 PO; +NEXI40CA PO; -NS 1,000 ML IV; +OCUVCAP2 PO; +PERC5TAB12 PO; -PROPOFOL 200 MG/20 ML VIAL As Ordered; +SIMV10TA2 PO; +TRAM50TA2 PO; +WARF-23
== END ==
LOC: M LAB LCGH 11:58
PROVIDERS: ATTEND Physician Assistant
DX: L82.0 Inflamed seborrheic keratosis (principal)

== ENCOUNTER 2024-05-04 06:42 | Day surgery (SDC) | payer MEDICARE, OTHER ==
[~2024-05-04] VITALS: Ht 172.7 cm; Wt 110.3 kg
[~2024-05-04 06:42] MED LIST changes: +BISO1TAB18 PO; +BISO5TAB14 PO; -BISO5TAB9 PO; +LISI10TA22 PO; -LISI10TA4 PO; -LISI20TA19 PO; +LISI20TA35 PO; +LISI40TA4 PO; +MULTTAB61 PO; +PRES1CAP PO; -SIMV10TA2 PO; +SIMV10TA21 PO; +SIMV20TA22 PO; +VITA500C24 PO
[2024-05-04] MEDS: NS 1,000 ML IV ONE (07:13)
[2024-05-04 08:07] VITALS: TEMP 97.9
[2024-05-04] MEDS ORDERED: propofoL 500 MG/50 ML VIAL As Ordered ONE (08:17)
[2024-05-04 08:30] VITALS: BP 132/83; O2SAT 95
== END 2024-05-04 08:32 | disposition home or self-care (01) ==
LOC: M OPP 06:42
PROVIDERS: ATTEND Internal Medicine Gastroenterology
DX: Z12.11 Encounter for screening for malignant neoplasm of colon (principal); Z86.010 Personal history of colon polyps; K64.0 First degree hemorrhoids; K57.30 Diverticulosis of large intestine without perforation or abscess without bleeding; K22.89 Other specified disease of esophagus; K22.70 Barrett's esophagus without dysplasia; R12 Heartburn; I10 Essential (primary) hypertension; Z79.02 Long term (current) use of antithrombotics/antiplatelets; Z79.82 Long term (current) use of aspirin; Z79.899 Other long term (current) drug therapy; Z88.5 Allergy status to narcotic agent
CPT/HCPCS: 43239; 88305; G0105

== ENCOUNTER 2025-08-31 08:31 | Day surgery (SDC) | payer MEDICARE, OTHER ==
[~2025-08-31] VITALS: Ht 172.7 cm; Wt 102.1 kg
[~2025-08-31 08:31] MED LIST changes: +AMLO2.5T3 PO; +LISI40TA10 PO; -LISI40TA4 PO; +PHENYLEPHRINE 10% OPHTH SOL 5ML OS PRN
[2025-08-31] MEDS ORDERED: MIDAZOLAM INJ 2 MG/2 ML VIAL As Ordered ONE (09:55)
[2025-08-31] MEDS: TROPICAMIDE 1% OPHTH SOLN 15ML OS SCH (10:15)
[2025-08-31] MEDS: PHENYLEPHRINE 2.5% OPHTH SOL 2ML OS SCH (10:15)
[2025-08-31] MEDS: CYCLOPENTOLATE 1% OPHTH SOLN 2 ML BTL OS SCH (10:15)
[2025-08-31] MEDS: OFLOXACIN 0.3 % (OCUFLOX) OPTH SOL 5ML OS ONE (10:15)
[2025-08-31] MEDS: LIDOCAINE 3.5% 1 ML OPHTH TOPICAL GEL OU ONE (10:15)
[2025-08-31] MEDS: LIDOCAINE 1% SDV 5 ML VIAL As Ordered ONE (10:53)
[2025-08-31] MEDS: BSS IRRIG/VANCO(10MG)/TOBRA(5MG)/EPINEPH(1:1000-0.5CC)500ML BAG-ORONLY As Ordered ONE (10:53)
[2025-08-31] MEDS: CEFUROXIME 1 MG/0.1 ML INTRACAMERAL INJ As Ordered ONE (10:53)
[2025-08-31 11:03] VITALS: BP 157/86; TEMP 97.3; O2SAT 97
== END 2025-08-31 11:19 | disposition home or self-care (01) ==
LOC: M SDC 08:31
PROVIDERS: ATTEND Ophthalmology
DX: H25.12 Age-related nuclear cataract, left eye (principal); I10 Essential (primary) hypertension; E78.5 Hyperlipidemia, unspecified; K21.9 Gastro-esophageal reflux disease without esophagitis; Z79.82 Long term (current) use of aspirin; Z79.899 Other long term (current) drug therapy; Z88.8 Allergy status to other drugs, medicaments and biological substances
CPT/HCPCS: 66984; J0697; J2250; J3010; V2632

== ENCOUNTER 2025-09-14 08:57 | Day surgery (SDC) | payer MEDICARE, OTHER ==
[~2025-09-14] VITALS: Ht 172.7 cm; Wt 99.8 kg
[~2025-09-14 08:57] MED LIST changes: +COQ150CH PO; +MIDAZOLAM INJ 2 MG/2 ML VIAL As Ordered ONE; +PHENYLEPHRINE 10% OPHTH SOL 5ML OD PRN; -PHENYLEPHRINE 10% OPHTH SOL 5ML OS PRN
[2025-09-14] MEDS: TROPICAMIDE 1% OPHTH SOLN 15ML OD SCH (10:03)
[2025-09-14] MEDS: LIDOCAINE 3.5% 1 ML OPHTH TOPICAL GEL OU ONE (10:03)
[2025-09-14] MEDS: PHENYLEPHRINE 2.5% OPHTH SOL 2ML OD SCH (10:03)
[2025-09-14] MEDS: CYCLOPENTOLATE 1% OPHTH SOLN 2 ML BTL OD SCH (10:03)
[2025-09-14] MEDS: OFLOXACIN 0.3 % (OCUFLOX) OPTH SOL 5ML OD ONE (10:03)
[2025-09-14] MEDS: LIDOCAINE 1% SDV 5 ML VIAL As Ordered ONE (10:32)
[2025-09-14] MEDS: CEFUROXIME 1 MG/0.1 ML INTRACAMERAL INJ As Ordered ONE (10:32)
[2025-09-14] MEDS: BSS IRRIG/VANCO(10MG)/TOBRA(5MG)/EPINEPH(1:1000-0.5CC)500ML BAG-ORONLY As Ordered ONE (10:32)
[2025-09-14 11:14] VITALS: BP 129/73; TEMP 97.3; O2SAT 99
== END 2025-09-14 11:14 | disposition home or self-care (01) ==
LOC: M SDC 08:57
PROVIDERS: ATTEND Ophthalmology
DX: H25.11 Age-related nuclear cataract, right eye (principal); I10 Essential (primary) hypertension; E78.00 Pure hypercholesterolemia, unspecified; Z79.899 Other long term (current) drug therapy; Z79.82 Long term (current) use of aspirin; Z88.8 Allergy status to other drugs, medicaments and biological substances; Z87.19 Personal history of other diseases of the digestive system
CPT/HCPCS: 66984; J0697; J2250; J3010; V2632

== ENCOUNTER → 2025-10-10 | Outpatient (CLI) | payer MEDICARE, OTHER ==
[~2025-10-10] MED LIST changes: -MIDAZOLAM INJ 2 MG/2 ML VIAL As Ordered ONE; -PHENYLEPHRINE 10% OPHTH SOL 5ML OD PRN
[2025-10-10 14:17] LABS: PLATELET COUNT, AUTOMATED 185 10^3/uL (150-450)
[2025-10-10 14:21] LABS: ALT/SGPT 29.0 U/L (7.0-40); AST/SGOT 23.0 U/L (<34); CALCIUM LEVEL 8.4 MG/DL (8.3-10.6); CARBON DIOXIDE LEVEL 29.0 MMOL/L (20-31); CHLORIDE LEVEL 108.0 MMOL/L (98-107); CHOLESTEROL LEVEL 207.0 MG/DL (<200); CHOLESTEROL RISK RATIO 5.33 (<5); CREATININE FOR GFR 1.04 MG/DL (0.70-1.30); GLOMERULAR FILTRATION RATE 76.8 (>42); LDL CHOLESTEROL 138.6 MG/DL (<100); NON-HDL-C 168.2 MG/DL; POTASSIUM SERUM 3.8 MMOL/L (3.5-5.1); PROSTATIC SPECIFIC AG MONITOR 0.99 NG/ML (< 4.00); SODIUM LEVEL 145.0 MMOL/L (136-145); TRIGLYCERIDES LEVEL 148.0 MG/DL (<150)
[2025-10-10 14:30] LABS: ESTIMATED AVERAGE GLUCOSE 137.0 MG/DL (60-110)
== END ==
LOC: M PLALAB 10:27
PROVIDERS: ATTEND Internal Medicine
DX: K52.9 Noninfective gastroenteritis and colitis, unspecified (principal); D53.9 Nutritional anemia, unspecified; E78.00 Pure hypercholesterolemia, unspecified; R97.20 Elevated prostate specific antigen [PSA]

== ENCOUNTER → 2025-10-11 | Outpatient (REF) | payer MEDICARE, OTHER | LOC: M LAB REF 10:46 | PROVIDERS: ATTEND Internal Medicine | DX: K52.9 Noninfective gastroenteritis and colitis, unspecified (principal) ==

== ENCOUNTER → 2025-10-30 | Outpatient (CLI) | payer MEDICARE, OTHER ==
[2025-10-30 13:25] LABS: BASO # 0.1 10^3/uL (0.0-0.2); BASO % 1.3 % (0.0-1.0); EOS # 0.2 10^3/uL (0.0-0.5); EOS % 2.3 % (0.0-3.0); LYMPH # 1.9 10^3/uL (1.5-5.0); LYMPH % 26.9 % (24.0-44.0); MONO # 0.8 10^3/uL (0.0-0.8); MONO % 12.1 % (2.0-8.0); NEUTROPHILS # 3.9 10^3/uL (1.5-8.5); NEUTROPHILS % 57.3 % (36.0-66.0); PLATELET COUNT, AUTOMATED 199 10^3/uL (150-450)
== END ==
LOC: M PLALAB 09:55
PROVIDERS: ATTEND Internal Medicine
DX: D53.9 Nutritional anemia, unspecified (principal)